=== PATIENT | female | born 1975 | race Caucasian/White ===

== ENCOUNTER 2017-04-03 21:35 | Emergency (ER) | payer BC ==
[~2017-04-03] VITALS: Ht 162.6 cm; Wt 54.4 kg
--- NOTE | 2017-04-03 21:48 | Emergency Room Report ---
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 N Clinical Suspician of Infection? N Mental Status: 1 - Regular (Normal Baseline) Sepsis Risk:Low Sepsis Risk Have you (or family members/close friends) recently traveled outside the [place]? N If Yes, where/when: Have you had exposure to infectious disease within the past month? N TB? Other? Specify: Comment Patient complains of severe lower abdominal pain. She says it started at about 8 :00, worsened by 9:00. Caused her to double over and feel like she was going to . She had chills, but says that she had just finished a run and was sweaty and thinks it might have been due to that. No back pain, no nausea, vomiting or diarrhea. No urinary symptoms. No unusual vaginal bleeding. Last menstrual period was less than a week ago. No prior similar symptoms. Pain was 10/10. The pain has now resolved and she says it is 0/10. ALLERGIES Coded Allergies: No Known Allergies (04/03/17) History Medical History General CAD? No Angina: No [place]: No Hypertension? No Hyperlipidemia? No CHF? No DVT? No PE? No COPD? No Asthma? No Anemia? No GERD? No Gastric ulcers? No GI Bleed? No Hernia? No Thyroid Problems? No Hypothyroidism? No CVA? No Seizures? No Diabetes? No Renal Insuffiency? No End Stage Renal Disease? No UTI? No Stones? No GB Disease: No Nephritic Syndrome? No Asplenia? No Hepatitis? No Sickle Cell Disease? No Arthritis? No Migraines? No Cataracts? No Glaucoma? No MRSA? No HIV? No TB? No Anxiety? No Depression? No Cancer? No More? 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 Musculoskeletal denies back pain Physical Exam Vital Signs Vital Signs Date Time Temp Pulse Resp B/P Pulse O2 O2 Flow FiO2 Ox Delivery Rate 04/031 98.3 73 18 114/57 98 General Appearance normal appearance, WD/WN Eye Exam - bilateral eye normal exam, bilateral eye PERRL, bilateral eye EOMI Ear, Nose, Throat hearing grossly normal, normal ENT inspection Neck normal inspection, non-tender, supple, full range of motion Respiratory Status Yes: trachea midline, chest symmetrical, non tender chest. No: respiratory distress. Lung Sounds bilateral: normal breath sounds, lungs clear. Cardiovascular normal exam, regular rate/rhythm, no peripheral edema, no gallop, no JVD, no murmur, no rub, normal peripheral pulses Peripheral Pulses Pulses normal Yes Gastrointestinal normal bowel sounds, normal exam, non tender, soft, no organomegaly Back normal inspection, no CVA tenderness, no vertebral tenderness Extremities non-tender, normal range of motion, normal inspection Neurologic alert, reimbursement analyst II-XII nml as tested, normal exam, oriented x 3 Mental status normal mood/affect Skin intact, normal color, warm/dry Medical Decision Making LABS/Meds/Orders Pt receiving controlled substance in ED? No Evaristo was queried for this patient? Yes Comment [phone] [id number] rxs. Results/Orders Laboratory Tests 04/03/171: Sodium 139, Potassium 3.9, Chloride 104, Carbon Dioxide 29, BUN 30 H, Creatinine 1.0, Estimated Creat Clear 64, Estimated GFR (MDRD) 61, Glucose 113 H, Calcium 8.8, Total Bilirubin 0.3, AST 15, ALT 19, Alkaline Phosphatase 48, Total Protein 7.3, Albumin 3.7, Globulin 3.6 H, Albumin/Globulin Ratio 1.0 L, Amylase 52, Lipase 222, WBC 9.6, RBC 3.92 L, Hgb 12.5, Hct 37.7, MCV 96.2, RDW 12.1, Plt Count 222, MPV 7.5, Gran % 87.3 H, Gran # 8.4 H, Total Counted 100, Lymphocytes % 9.9 L, Monocytes % 2.0, Eosinophils % 0.6, Basophils % 0.2, Neutrophils 84 H, Lymphocytes (Manual) 14, Lymphocytes # 1.0, Monocytes (Manual ) 1 L, Monocytes # 0.2, Eosinophils # 0.1, Eosinophils # (Manual) 1, Basophils # 0.0, Platelet Estimate NORMAL, Anisocytosis 1+, PUBS MCHC 33.2, MCH 32.0 H, Urine Color YELLOW, Urine Appearance CLEAR, Urine pH 5.5, Ur Specific [place] 1.015, Urine Protein NEGATIVE, Urine Ketones NEGATIVE, Urine Blood 3+ H, Urine Nitrate NEGATIVE, Urine Bilirubin NEGATIVE, Urine Urobilinogen 0.2, Ur Leukocyte Esterase NEGATIVE, Urine RBC 5-10, Urine WBC 3-5, Ur Squamous Epith Cells 5-10, Urine Bacteria 1+, Fine Granular Casts OCC, Urine Mucus OCC, Urine Glucose NEGATIVE Current Medication Orders Sig/Vadim Start time Last Medication Dose Route Stop Time Status Admin Sodium Chloride 10 ML PRN PRN 04/03 2215 AC IV 04/04 2209 Orders Procedure Date/time Status DIET-NOTHING BY MOUTH 04/[address] ABD & PELVIS W/O CONTRAST 04/[address] ABD/PELVIS REQ 04/03 2244 Complete DIFFERENTIAL-WBC 04/03 222 Complete URINE 04/03 2210 Complete IV SALINE LOCK 04/03 2209 Active URINALYSIS/COMPLETE 04/03 2209 Complete LIPASE 04/03 2209 Complete CBC WITH AUTO DIFF 04/03 2209 Complete CHEM 12 PROFILE 04/03 2209 Complete AMYLASE 04/03 2209 Complete XRAY/CT/US XRAY/CT/US CT abdomen, pelvis Comment CT scan interpreted by ad radiologist. Faxed report received and reviewed: No acute findings. Punctate nonobstructing LEFT renal stone but no obstructive uropathy. Constipation. Normal appendix. Progress - 11:45 PM: Still pain free. I discussed results. I think likely scenarios are that she passed a kidney stone or that she had colon spasm due to constipation. I've discussed this with the patient. Departure Departure Disposition DC Home or Self Care(routine) Clinical Impression Primary Impression: Lower abdominal pain Secondary Impressions: Constipation Qualifiers: Constipation type: unspecified constipation type Qualified Code: K59.00 - Constipation, unspecified Nephrolithiasis Condition STABLE Referrals Peter MONTERO,Breezy (Family) Patient Instructions DI for Abdominal Pain-Adult, DI for Constipation, DI for Kidney Stones Additional Instructions MiraLAX daily for 3-5 days. Additional instructions for ABDOMINAL PAIN: See your physician as soon as possible for further evaluation. Return immediately if worsening abdominal pain, vomiting, shortness of breath, fever, vomiting of blood or abdominal distention. What is known about DIET and KIDNEY STONES: Most kidney stones contain calcium oxalate. The logical assumption would be that you should avoid calcium and oxalate in your diet. Contrary to what you would think, this is not necessarily the case. What is actually recommended for kidney stone prevention is a diet that contains MODERATELY HIGH AMOUNTS OF CALCIUM and is LOW IN SODIUM with PLENTY OF FLUIDS. Avoiding oxalate containing foods is recommended by some experts, but is controversial. Following the DASH (Dietary Approaches to Stop Hypertention) has been shown to significantly reduce the incidence of kidney stones. The DASH diet encourages you to reduce the sodium in your diet and eat a variety of foods rich in nutrients that help lower blood pressure, such as potassium, calcium and magnesium. Recommendations: Fluids: It is widely agreed upon that you need to drink plenty of fluids. A minimum would be 8-10 glasses (8 oz each) of fluid per day. Some experts recommend as much as 14-15 glasses a day. Sodium: The way to lower calcium in your urine is to lower your sodium intake. Try not to get more than 1500 mg a day. Calcium: Dietary calcium prevents absorption of oxalate. Make sure you get about 1000 to 1200 mg a day. You can get enough calcium from dairy products without taking supplements. Do not overdo it. Calcium should be ingested with meals, not in between meals. You need to get your calcium at mealtime to decrease the absorption of oxalate from other foods. Oxalate: Although some experts recommend avoiding oxalate in your diet, there have been no studies that prove this works. Eating more calcium will reduce oxalate absorption, and is probably all that is needed to reduce oxalate in your urine. Oxalate containing foods are generally good for you in all other respects - leafy greens, nuts, etc... So avoiding them unnecessarily might not be the best thing for your health. If you want to do something to avoid oxalate , avoid spinach and rhubarb - those are extremely high in oxalate (or at least eat a high calcium meal with these). ALSO: If you retrieve your stone by straining your urine, take it to your physician for stone analysis, which can help tailor your dietary recommendations. For further reading, check out the [facility] web page about the kidney stone diet: [email or web address]/ ED Critical Care Critical Care No at [id number]
[2017-04-03 22:37] LABS: HEMOGLOBIN 12.5 g/dL (12.2-16.2); LYMPH % 9.9 % (10-50.0)
[2017-04-03 22:42] LABS: URINE BILIRUBIN - DIPSTICK NEGATIVE (NEG); URINE BLOOD 3+ (NEG)
[2017-04-03 23:20] LABS: NEUTROPHILS 84 % (42-76)
[2017-04-04 00:39] VITALS: BP 101/65
--- NOTE | 2017-04-05 17:18 | RADIOLOGY REPORT PS360 ---
CT ABD PELVIS W/O CONTRAST ORDERING PHYSICIAN : Deyvi Rivero MD PATIENT AGE: 41 years GENDER: Female TECHNIQUE: CT abdomen and pelvis without oral nor IV contrast. Sagittal and coronal reconstruction CT workstation INDICATION: LOW ABD PAIN Epigastric pain lower abdominal pain COMPARISON: No previous abdominal studies. FINDINGS Lower thorax: Lung bases are clear. No acute findings. Calcified granuloma with central calcification measuring 8 mm at the posterior right lower lobe. Abdomen and pelvis. Decreased sensitivity with lack of oral & IV contrast Liver. No focal lesion. No bili ductal dilatation. Gallbladder. No calcified stones minimal sludge. Spleen normal size. Pancreas unremarkable on this noncontrast study. Kidneys. Right kidney no urinary tract calculi nor obstruction. Left kidney. Punctate 3 mm calculus at midportion left kidney. Nonobstructive.: Left ureter unremarkable Pelvis. Uterus upper normal size with moderate endometrial stripe.. Moderate size ovaries bilaterally. Difficult to delineate with the unopacified adjacent bowel loops but neither ovary measuring over 3.5 cm.. Scant fluid at cul-de-sac most likely physiologic. Prominent stool is seen throughout the colon most pronounced at the right colon. And redundant transverse colon. Suggest mild constipation. Minimal stool at rectosigmoid. . Appendix I believe visualized and most likely normal. If this remains a concern clinically then follow-up with study with oral and IV contrast suggested. Small bowel appears satisfactory with no dilatation nor obstruction. Minimal food and fluid within stomach. IMPRESSION ... No acute findings abdomen or pelvis.. Punctate nonobstructing stone at the left kidney but no obstructive uropathy. Constipation. The appendix difficult to visualize but I believe normal. Trace fluid at pelvis most likely physiologic. Moderate endometrial stripe. .
--- OUTSIDE RECORDS SUMMARY | 2017-04-05 22:39 | External Medical Summary Rpt ---
Author Author [employer] Organization [employer] Address Unknown Phone Unavailable Purpose Continuity of Care Document - through 2016
--- OUTSIDE RECORDS SUMMARY | 2017-04-05 22:39 | External Medical Summary Rpt ---
Author Author CANDIDAALYSHA Sarmiento, [employer] Address Unknown Phone Unavailable Results CBC W Auto Differential panel in Blood Observa Value Referen Units Interpr Notes Date tion ce etation Range Basophils 0 - 0.2 K/MM3 Normal No Apr 03 inform2016 [#/volume on in 10:21 PM ] in source Blood by data Automated count Basophils 0.1 - 2.0 % Normal No Apr 03 /100 inform2016 leukocyte on in 10:21 PM s in source Blood by data Automated count Eosinophi 0.0 - 0.4 K/mm3 Normal No Apr 03 ls 2016 [#/volume on in 10:21 PM ] in source Blood by data Automated count Eosinophi 0.1 - % Normal No Apr 03 ls/100 12.0 2016 leukocyte on in 10:21 PM s in source Blood by data Automated count Granulocy 1.8 - 7.8 K/mm3 High No Apr 03 caridad 2016 [#/volume on in 10:21 PM ] in source Blood by data Automated count Granulocy 37.0 - % High No Apr 03 caridad/100 80.0 2016 leukocyte on in 10:21 PM s in source Blood by data Automated count Hematocri 37.0 - % Normal No Apr 03 t [Volume 47.0 ati 2016 on in 10:21 PM Fraction] source of Blood data Hemoglobi 12.2 - g/dL Normal No Apr 03 n 16.2 2016 [Mass/vol on in 10:21 PM ume] in source Blood data Lymphocyt 0.7 - 4.5 K/mm3 Normal No Apr 03 es 2016 [#/volume on in 10:21 PM ] in source Unspecifi data ed specimen by Automated count Lymphocyt 10 - 50.0 % Low No Apr 03 es 2016 [#/volume on in 10:21 PM ] in source Unspecifi data ed specimen by Automated count Erythrocy 27 - 31.2 pg High No Apr 03 te mean 2017 corpuscul on in 10:21 PM ar source hemoglobi data n [Entitic mass] Erythrocy 31.8 - g/dl Normal No Apr 03 te mean 35.4 2016 corpuscul on in 10:21 PM ar source hemoglobi data n concentra tion [Mass/vol ume] by Automated count Erythrocy 82.2 - fl Normal No Apr 03 te mean 97.8 2016 corpuscul on in 10:21 PM ar volume source [Entitic data volume] by Automated count Monocytes 0.1 - 1.0 K/mm3 Normal No Apr 2 inform2016 [#/volume on in 10:21 PM ] in source Blood by data Automated count Monocytes 1.7 - 9.3 % Normal No Apr 03 inform2016 leukocyte on in 10:21 PM s in source Blood by data Automated count Platelet 7.4 - fl Normal No Apr 03 mean 10.4 inform2016 volume on in 10:21 PM [Entitic source volume] data in Blood by Automated count Platelets 142 - 424 K/mm3 Normal No Apr 2 inform2016 [#/volume on in 10:21 PM ] in source Blood data Erythrocy 4.2 - 5.4 M/mm3 Low No Apr 2 caridad 2016 [#/volume on in 10:21 PM ] in source Amniotic data fluid Erythrocy 11.5 - % Normal No Apr 03 te 17.5 2016 distribut on in 10:21 PM ion width source [Entitic data volume] by Automated count Leukocyte 4.8 - K/MM3 Normal No Apr 2 s 10.8 2016 [#/volume on in 10:21 PM ] in source Blood data Differential panel, method unspecified - Observa Value Referen Units Interpr Notes Date tion ce etation Range Anisocy 1+ No No No No Apr 2 tosis informa informa informa informa 2016 [Presen tion in tion in tion in tion in 10:21 ce] in source source source source PM Blood data data data data Eosinophi 0 - 3 % Normal No Apr 2 ls/100 2016 leukocyte on in 10:21 PM s in source Blood by data Manual count LYMPH 14 10 - 50 % Normal No Apr 2 informa 2016 tion in 10:21 source PM data Monocytes 2 - 9 % Low No Aug 2 /100 informati 2016 leukocyte on in 10:21 PM s in source Blood by data Automated count Platele NORMAL No No No No Apr 2 ts informa informa informa informa 2016 [Presen tion in tion in tion in tion in 10:21 ce] in source source source source PM Blood data data data data by Light microsc opy Neutrophi 42 - 76 % High No Apr 2 ls informati 2016 [#/volume on in 10:21 PM ] in source Blood by data Automated count Cells No #CELLS No No Apr 2 Counted informati informati informati 2016 Total [#] on in on in on in 10:21 PM in Blood source source source data data data Urinalysis dipstick W Reflex Microscopic panel in Urine Observa Value Referen Units Interpr Notes Date tion ce etation Range Appeara CLEAR CLEAR No No No Apr 2 nce of informa informa informa 2016 Urine tion in tion in tion in 10:21 source source source PM data data data Bacteri 1+ O No No No Apr 2 a informa informa informa 2016 [Presen tion in tion in tion in 10:21 ce] in source source source PM Urine data data data sedimen t by Light microsc opy Bilirub NEGATIV NEG No No No Apr 03 in E informa informa informa 2016 [Presen tion in tion in tion in 10:21 ce] in source source source PM Urine data data data by Test strip Erythro 3+ NEG No Abnorma No Apr 2 cytes informa l informa 2016 [Presen tion in tion in 10:21 ce] in source source PM Urine data data Color YELLOW YELLOW No No No Apr 2 of informa informa informa 2016 Urine tion in tion in tion in 10:21 source source source PM data data data Eosinophi NONE #/lpf No No Apr 2 ls/100 informati informati 2016 leukocyte on in on in 10:21 PM s in source source Urine data data sediment by Manual count Glucose NEG No No No Apr 2 [Mass/vol informati informati informati 2016 ume] in on in on in on in 10:21 PM Urine by source source source Test data data data strip Ketones NEGATIV NEG mg/dL No No Apr 2 E informa informa 2016 [Presen tion in tion in 10:21 ce] in source source PM Urine data data by Automat ed test strip Mucus NEGATIV NEG No No No Apr 2 [Presen E informa informa informa 2016 ce] in tion in tion in tion in 10:21 Urine source source source PM sedimen data data data t by Light microsc opy Mucus OCC OCC No No No Apr 2 [Presen informa informa informa 2016 ce] in tion in tion in tion in 10:21 Urine source source source PM sedimen data data data t by Light microsc opy Nitrite NEGATIV NEG No No No Apr 2 E informa informa informa 2017 [Presen tion in tion in tion in 10:21 ce] in source source source PM Urine data data data by Test strip pH of 5.0 - 8.5 No Normal No Apr 2 Urine informati informati 2017 on in on in 10:21 PM source source data data Protein NEG mg/dL No No Apr 2 [Mass/vol informati informati 2017 ume] in on in on in 10:21 PM Urine by source source Automated data data test strip Erythro 5-10 0 rbc/hpf No No Apr 2 cytes informa informa 2017 [Presen tion in tion in 10:21 ce] in source source PM Urine data data sedimen t by Light microsc opy Specific 1.005 - No Normal No Apr 2 gravity 1.030 informati informati 2017 of Urine on in on in 10:21 PM source source data data Epithel 5-10 0 - 5 #/hpf No No Apr 2 ial informa informa 2017 cells.s tion in tion in 10:21 quamous source source PM data data [Presen ce] in Urine sedimen t by Microsc opy high power field Urobili 0.2 NEG E.U./dL No No Apr 2 nogen informa informa 2017 [Presen tion in tion in 10:21 ce] in source source PM Urine data data by Test strip Leukocy [3 O wbc/hpf No No Apr 2 caridad wbc/hpf informa informa 2016 [#/volu ; 5 tion in tion in 10:21 me] in wbc/hpf source source PM Urine ] data data Urinalysis dipstick W Reflex Microscopic panel in Urine Observa Value Referen Units Interpr Notes Date tion ce etation Range Appeara CLEAR CLEAR No No No Apr 2 nce of informa informa informa 2017 Urine tion in tion in tion in 10:21 source source source PM data data data Bilirub NEGATIV NEG No No No Apr 2 in E informa informa informa 2016 [Presen tion in tion in tion in 10:21 ce] in source source source PM Urine data data data by Test strip Erythro 3+ NEG No Abnorma No Apr 2 cytes informa l informa 2016 [Presen tion in tion in 10:21 ce] in source source PM Urine data data Color YELLOW YELLOW No No No Apr 2 of informa informa informa 2017 Urine tion in tion in tion in 10:21 source source source PM data data data Glucose NEG No No No Apr 2 [Mass/vol informati informati informati 2017 ume] in on in on in on in 10:21 PM Urine by source source source Test data data data strip Ketones NEGATIV NEG mg/dL No No Apr 2 E informa informa 2016 [Presen tion in tion in 10:21 ce] in source source PM Urine data data by Automat ed test strip Mucus NEGATIV NEG No No No Apr 2 [Presen E informa informa informa 2016 ce] in tion in tion in tion in 10:21 Urine source source source PM sedimen data data data t by Light microsc opy Nitrite NEGATIV NEG No No No Apr 2 E informa informa informa 2016 [Presen tion in tion in tion in 10:21 ce] in source source source PM Urine data data data by Test strip pH of 5.0 - 8.5 No Normal No Apr 2 Urine informati informati 2017 on in on in 10:21 PM source source data data Protein NEG mg/dL No No Apr 2 [Mass/vol informati informati 2017 ume] in on in on in 10:21 PM Urine by source source Automated data data test strip Specific 1.005 - No Normal No Apr 2 gravity 1.030 informati informati 2017 of Urine on in on in 10:21 PM source source data data Urobili 0.2 NEG E.U./dL No No Apr 2 nogen informa informa 2017 [Presen tion in tion in 10:21 ce] in source source PM Urine data data by Test strip Amylase [Enzymatic activity/volume] in Serum or Plasma Observa Value Referen Units Interpr Notes Date tion ce etation Range Amylase 25 - 115 U/L Normal No Apr 03 [Enzymati informati 2017 c on in 10:21 PM activity/ source volume] data in Serum or Plasma Comprehensive metabolic 2000 panel in Serum or Plasma Observa Value Referen Units Interpr Notes Date tion ce etation Range Albumin/G 1.1 - 1.8 No Low No Apr 03 lobulin informati informati 2016 [Mass on in on in 10:21 PM ratio] in source source Serum or data data Plasma Albumin 3.4 - 5.0 gm/dL Normal No Apr 03 [Mass/vol informati 2016 ume] in on in 10:21 PM Serum or source Plasma data Alkaline 46 - 116 U/L Normal No Apr 03 phosphata informati 2017 se on in 10:21 PM [Enzymati source c data activity/ volume] in Serum or Plasma Bilirubin 0.2 - 1.0 mg/dL Normal No Apr 03 .total informati 2016 [Mass/vol on in 10:21 PM ume] in source Serum or data Plasma Urea 7 - 18 mg/dL High No Apr 03 nitrogen informati 2016 [Mass/vol on in 10:21 PM ume] in source Serum or data Plasma Calcium 8.5 - mg/dL Normal No Apr 03 [Mass/vol 10.1 informati 2016 ume] in on in 10:21 PM Serum or source Plasma data Chloride 98 - 107 mmoL/L Normal No Apr 03 [Moles/vo informati 2016 lume] in on in 10:21 PM Serum or source Plasma data Carbon 21.0 - mmoL/L Normal No Apr 03 dioxide, 32.0 informati 2017 total on in 10:21 PM [Moles/vo source lume] in data Serum or Plasma Creatinin 0.55 - mg/dL Normal No Apr 03 e 1.02 informati 2017 [Mass/vol on in 10:21 PM ume] in source Serum or data Plasma Creatinin 50 - 200 ML/MIN Normal No Apr 03 e renal informati 2017 clearance on in 10:21 PM source predicted data by Cockcroft -Gault formula Estimated 59- ML/MIN No REFERENCE Aug 2 informati RANGE: 2017 glomerula on in >60 10:21 PM r source ML/MIN/1. filtratio data 73 SQUARE n rate METERSIf (GF this patient is -A merican, then multiply theresult by 1.210. Globulin 1.3 - 3.2 gm/dL High No Apr 03 [Mass/vol informati 2016 ume] in on in 10:21 PM Serum source data Glucose 74 - 106 mg/dL High No Apr 03 [Mass/vol informati 2016 ume] in on in 10:21 PM Serum or source Plasma data Potassium 3.5 - 5.1 mmoL/L Normal No Apr 03 inform2016 [Moles/vo on in 10:21 PM lume] in source Serum or data Plasma Sodium 136 - 145 mmoL/L Normal No Apr 03 [Moles/vo informati 2017 lume] in on in 10:21 PM Serum or source Plasma data Aspartate 15 - 37 U/L Normal No Apr 03 inform2016 aminotran on in 10:21 PM sferase source [Enzymati data c activity/ volume] in Serum or Plasma Alanine 12 - 78 U/L Normal No Apr 03 aminotran inform2016 sferase on in 10:21 PM [Enzymati source c data activity/ volume] in Serum or Plasma Protein 6.4 - 8.2 gm/dL Normal No Apr 03 [Mass/vol informati 2016 ume] in on in 10:21 PM Serum or source Plasma data Lipase [Enzymatic activity/volume] in Serum or Plasma Observa Value Referen Units Interpr Notes Date tion ce etation Range Lipase 73 - 393 U/L Normal No Apr 03 [Enzymati informati 2017 c on in 10:21 PM activity/ source volume] data in Serum or Plasma Choriogonadotropin.beta subunit [Units] in 24 hour Urine Observa Value Referen Units Interpr Notes Date tion ce etation Range Choriogon NEG No No No Apr 03 adotropin informati informati informati 2017 .beta on in on in on in 10:21 PM subunit source source source [Units] data data data in 24 hour Urine
--- OUTSIDE RECORDS SUMMARY | 2017-04-05 22:39 | External Medical Summary Rpt ---
Demographics Preferred Language Urdu Marital Status Unknown Restoration Affiliation Unknown Race Unknown Ethnic Group Unknown Author Author LINK Address Unknown Phone Immunization Unable to retrieve immunization data due to connection failure with Immunization Registry. Please try again later.
--- OUTSIDE RECORDS SUMMARY | 2017-04-05 22:39 | External Medical Summary Rpt ---
Author Author , SANDY DELGADO Address Unknown Phone [email or web address] Purpose Continuity of Care Document - 04-03-2017 through 2016 Problems Code Diagnosis DOS Provider Status K59.00 CONSTIPATIO N, UNSPECIFIED N20.0 CALCULUS OF KIDNEY R10.30 LOWER ABDOMINAL PAIN, UNSPECIFIED Results Labs Lab Lab Date Result Refere Interp Status Commen Order Detail nces retati t Range on Differential panel, method unspecified - (04-03-2017 22:21) Anisocy 1+ complet tosis 017 ed [Presen 22:21 ce] in Blood LYMPH 14 % 10% - Normal complet 017 50% ed 22:21 Platele NORMAL complet ts 017 ed [Presen 22:21 ce] in Blood by Light microsc opy Urinalysis dipstick W Reflex Microscopic panel in Urine (04-03-2017 22:21) Bacteri 1+ O complet a 017 ed [Presen 22:21 ce] in Urine sedimen t by Light microsc opy Mucus OCC OCC complet [Presen 017 ed ce] in 22:21 Urine sedimen t by Light microsc opy Erythro 5-10 0 complet cytes 017 ed [Presen 22:21 ce] in Urine sedimen t by Light microsc opy Epithel 5-10 0#/hp complet ial 017 f - ed cells.s 22:21 5#/hp quamous f [Presen ce] in Urine sedimen t by Microsc opy high power field Leukocy 3-5 O complet caridad 017 wbc/hpf ed [#/volu 22:21 me] in Urine Urinalysis dipstick W Reflex Microscopic panel in Urine (04-03-2017 22:21) Appeara CLEAR CLEAR complet nce of 017 ed Urine 22:21 Bilirub NEGATIV NEG complet in 017 E ed [Presen 22:21 ce] in Urine by Test strip Erythro 3+ NEG Abnorma complet cytes 017 l ed [Presen 22:21 ce] in Urine Color YELLOW YELLOW complet of 017 ed Urine 22:21 Ketones NEGATIV NEG complet 017 E ed [Presen 22:21 ce] in Urine by Automat ed test strip Mucus NEGATIV NEG complet [Presen 017 E ed ce] in 22:21 Urine sedimen t by Light microsc opy Nitrite NEGATIV NEG complet 017 E ed [Presen 22:21 ce] in Urine by Test strip Urobili 0.2 NEG complet nogen 017 ed [Presen 22:21 ce] in Urine by Test strip
--- OUTSIDE RECORDS SUMMARY | 2017-04-05 22:39 | External Medical Summary Rpt ---
Author Author CANDIDAALYSHA Sarmiento, [employer]ANDY [employer] Address Unknown Phone Unavailable [...]
--- OUTSIDE RECORDS SUMMARY | 2017-04-05 22:39 | External Medical Summary Rpt ---
Demographics Preferred Language Lao Marital Status Unknown [employer] Affiliation Unknown Race Unknown Ethnic Group Unknown Author Author LINK Address Unknown Phone Immunization Unable to retrieve immunization data due to connection failure with Immunization Registry. Please try again later.
--- OUTSIDE RECORDS SUMMARY | 2017-04-05 22:39 | External Medical Summary Rpt ---
Author Author , SANDY DELGADO Address Unknown Phone [email or web address] Purpose Continuity of Care Document - 04-03-2017 [...]
== END 2017-04-04 00:40 | disposition home or self-care (01) ==
LOC: ER 21:35
PROVIDERS: Emergency Medicine
DX: K59.00 Constipation, unspecified (principal)